=== PATIENT | female | born 1985 | race Two or more races ===

== ENCOUNTER 2020-10-21 22:37 | Emergency (ER) | payer SELFPAY ==
[2020-10-21 22:54] VITALS: BP 112/74; PULSE 66; TEMP 98; BMI 25.4
== END 2020-10-22 02:07 | disposition left against medical advice (07) ==
LOC: JER 22:37
DX: R10.13 Epigastric pain (principal); R51.9 Headache, unspecified
CPT/HCPCS: 99281-25